=== PATIENT | female | born 1960 | race Caucasian/White ===

== ENCOUNTER 2020-11-11 11:32 | Outpatient (CLI) | payer OTHER, SELFPAY ==
[2020-11-11 19:51] LABS: Basophils Absolute Auto 0.1 K/mm3 (0.0-0.1); Eosinophils Absolute Auto 0.1 K/mm3 (0-0.3); Eosinophils Percent Auto 1.1 % (0-4.4); Hematocrit 46.7 % (37.0-47.0); Immature Granulocyte Absolute 0.03 K/mm3 (0.00-0.031); Immature Granulocyte Percent A 0.3 % (0-0.5); Lymphocytes Absolute Auto 2.89 K/mm3 (0.9-3.2); Lymphocytes Percent Auto 28.9 % (18.3-44.2); Mean Corpuscular HGB Conc 32.1 g/dl (32-36); Mean Corpuscular Hemoglobin 29.1 pg (26-34); Mean Corpuscular Volume 90.7 fl (80-100); Monocytes Absolute Auto 0.6 K/mm3 (0.1-0.6); Monocytes Percent Auto 5.7 % (2.6-8.5); Neutrophils Absolute Auto 6.3 K/mm3 (1.3-6.7); Platelet Count Result 258 k/mm3 (150-375); Red Blood Count 5.15 M/mm3 (4.2-5.4); Red Cell Distribution Width 12.1 % (11.5-14.5)
[2020-11-11 20:30] LABS: Alanine Aminotransferase 37 U/L (4-35); Albumin Level 4.1 g/dL (3.5-5.1); Alkaline Phosphatase 78 U/L (38-126); Anion Gap 7 mmol/L (8-16); Aspartate Amino Transferase 38 U/L (14-36); Bilirubin,Total 0.5 mg/dL (0.2-1.3); Blood Urea Nitrogen 11 mg/dL (7-17); Calcium 9.7 mg/dL (8.4-10.2); Carbon Dioxide 26 mmol/L (22-30); Chloride 101 mmol/L (98-107); Cholesterol 196 mg/dL (0-200); Estimated Glomerular Filt Rate > 60; Glucose 329 mg/dL (65-110); HDL Direct 53 mg/dL; Potassium 4.5 mmol/L (3.4-5.0); Sodium 134 mmol/L (137-145); Triglycerides 167 mg/dL (<150)
[2020-11-11 20:33] LABS: Hemoglobin A1C > 14.0 % (<5.7)
[2020-11-11 20:40] LABS: LDL Cholesterol Direct 115 mg/dL
[2020-11-11 21:27] LABS: MALB Creatinine Ratio 340.4 mg/g (0-30); Microalbumin Urine Random 255.3 mg/L (0-16.7)
== END 2020-11-11 11:33 | disposition home or self-care (01) ==
PROVIDERS: PCP Family Medicine; Visit Provider Family Medicine
DX: Z00.00 Encounter for general adult medical examination without abnormal findings (principal); E11.9 Type 2 diabetes mellitus without complications
CPT/HCPCS: 36415; 80053; 80061; 82043; 83036; 85025

== ENCOUNTER 2021-02-13 12:10 | Outpatient (CLI) | payer OTHER, SELFPAY ==
[2021-02-13 22:44] LABS: Hemoglobin A1C 9.3 % (<5.7)
== END 2021-02-13 12:11 | disposition home or self-care (01) ==
PROVIDERS: PCP Family Medicine; Visit Provider Family Medicine
DX: E11.9 Type 2 diabetes mellitus without complications (principal)
CPT/HCPCS: 36415; 83036

== ENCOUNTER 2021-05-14 18:00 | Outpatient (RCR) | payer OTHER, SELFPAY ==
[2021-02-25 09:40] VITALS: PULSE 67
[2021-03-19 12:06] LABS: Glucose Point of Care 130 mg/dl (65-105)
[2021-03-20 12:07] LABS: Glucose Point of Care 123 mg/dl (65-105)
[2021-04-10 19:11] LABS: Glucose Point of Care 129 mg/dl (65-105)
[2021-04-10 19:11] LABS: Glucose Point of Care 127 mg/dl (65-105)
== END 2021-05-21 10:08 | disposition home or self-care (01) ==
LOC: ANHCPREHAB 18:00
PROVIDERS: PCP Family Medicine
DX: Z95.5 Presence of coronary angioplasty implant and graft (principal); I50.89 Other heart failure
CPT/HCPCS: 93798

== ENCOUNTER 2021-05-20 11:21 | Outpatient (CLI) | payer OTHER, SELFPAY ==
[2021-05-20 20:57] LABS: Creatinine Urine 133.9 mg/dL
[2021-05-20 21:01] LABS: MALB Creatinine Ratio 69.2 mg/g (0-30); Microalbumin Urine Random 92.7 mg/L (0-16.7)
[2021-05-20 21:07] LABS: Hemoglobin A1C 7.9 % (<5.7)
== END 2021-05-20 11:22 | disposition home or self-care (01) ==
PROVIDERS: PCP Family Medicine; Visit Provider Family Medicine
DX: E11.9 Type 2 diabetes mellitus without complications (principal)
CPT/HCPCS: 36415; 82043; 83036

== ENCOUNTER 2021-08-21 10:34 | Outpatient (CLI) | payer OTHER, SELFPAY ==
[2021-08-21 19:24] LABS: Alanine Aminotransferase 31 U/L (6-35); Albumin Level 4.3 g/dL (3.5-5.1); Alkaline Phosphatase 52 U/L (38-126); Anion Gap 8 mmol/L (8-16); Aspartate Amino Transferase 42 U/L (14-36); Bilirubin,Total 0.4 mg/dL (0.2-1.3); Blood Urea Nitrogen 17 mg/dL (7-17); Calcium 9.5 mg/dL (8.4-10.2); Carbon Dioxide 26 mmol/L (22-30); Chloride 105 mmol/L (98-107); Cholesterol 106 mg/dL (0-200); Estimated Glomerular Filt Rate > 60; Glucose 159 mg/dL (65-110); HDL Direct 57 mg/dL; Potassium 4.8 mmol/L (3.4-5.0); Sodium 139 mmol/L (137-145); Triglycerides 121 mg/dL (<150)
[2021-08-21 19:51] LABS: Hemoglobin A1C 8.4 % (<5.7)
[2021-08-21 19:57] LABS: Creatinine Urine 134.4 mg/dL; LDL Cholesterol Direct < 30 mg/dL
[2021-08-21 20:01] LABS: MALB Creatinine Ratio 50.5 mg/g (0-30); Microalbumin Urine Random 67.9 mg/L (0-16.7)
== END 2021-08-21 10:35 | disposition home or self-care (01) ==
PROVIDERS: PCP Family Medicine; Visit Provider Family Medicine
DX: E11.9 Type 2 diabetes mellitus without complications (principal)
CPT/HCPCS: 36415; 80053; 80061; 82043; 83036

== ENCOUNTER 2021-11-24 07:33 | Outpatient (CLI) | payer OTHER, SELFPAY ==
[2021-11-24 18:44] LABS: Alanine Aminotransferase 27 U/L (6-35); Albumin Level 4.3 g/dL (3.5-5.1); Alkaline Phosphatase 48 U/L (38-126); Anion Gap 4 mmol/L (8-16); Aspartate Amino Transferase 30 U/L (14-36); Bilirubin,Total 0.2 mg/dL (0.2-1.3); Blood Urea Nitrogen 16 mg/dL (7-17); Calcium 9.1 mg/dL (8.4-10.2); Carbon Dioxide 27 mmol/L (22-30); Chloride 104 mmol/L (98-107); Cholesterol 122 mg/dL (0-200); Estimated Glomerular Filt Rate > 60; Glucose 139 mg/dL (65-110); HDL Direct 65 mg/dL; Potassium 4.3 mmol/L (3.4-5.0); Sodium 135 mmol/L (137-145); Triglycerides 117 mg/dL (<150)
[2021-11-24 19:49] LABS: Hepatitis B Surface Antigen Negative (Negative)
[2021-11-24 19:54] LABS: HAV RESULT Negative (Negative); Hepatitis B Core IgM Result Negative (Negative)
[2021-11-24 20:00] LABS: Hemoglobin A1C 6.9 % (<5.7)
[2021-11-24 20:06] LABS: Hepatitis C Virus Antibody Negative (Negative)
[2021-11-24 20:12] LABS: Creatinine Urine 137.6 mg/dL
[2021-11-24 20:17] LABS: MALB Creatinine Ratio 33.5 mg/g (0-30); Microalbumin Urine Random 46.1 mg/L (0-16.7)
[2021-11-24 20:42] LABS: LDL Cholesterol Direct < 30 mg/dL
== END 2021-11-24 07:34 | disposition home or self-care (01) ==
PROVIDERS: PCP Family Medicine; Visit Provider Family Medicine
DX: R74.01 Elevation of levels of liver transaminase levels (principal); E11.9 Type 2 diabetes mellitus without complications
CPT/HCPCS: 36415; 80053; 80061; 80074; 82043; 83036

== ENCOUNTER 2022-01-05 00:36 | Day surgery (SDC) | payer OTHER, SELFPAY ==
[2021-12-23 14:56] VITALS: BMI 31.4
[2022-01-05 09:19] VITALS: BP 136/67; PULSE 81; RESP 17; TEMP 36.6; O2SAT 99; BMI 31.1
[2022-01-05 09:31] LABS: Glucose Point of Care 104 mg/dl (65-105)
[2022-01-05] MEDS: LACTATED RINGERS 1,000 ML 150 ML IV CONT (09:31)
--- NOTE | 2022-01-05 09:40 | PM.HPGS ---
History of Present Illness History of Present Illness Consent: Risks, benefits, and alternatives have been discussed and questions answered. Patient agrees to proceed with procedure. Chief complaint: neoplasm screening Narrative: Bev Erazo is a 62 year old female Presents for screening colonoscopy. Patient reports having had colon polyps on [address] Maximiliano Payne. These were performed in [place]. Most recent colonoscopy 7 years ago. Patient reports her current weight appetite and bowel movements are normal. Patient denies any bleeding. Her family history is noncontributory. Patient has recent past medical history is significant for atherosclerotic heart disease. She has a history of heart stents. A history of an MD. She is being treated for diabetes. Review of Systems Review of Systems: Review of systems noncontributory. [facility] Family History Family History Father Diabetes mellitus Hypertension Family history of cardiovascular disease Grandparent Diabetes mellitus Family history of malignant neoplasm of brain Hypertension Cerebrovascular accident Family history of cardiovascular disease Endometrial cancer Mother Family history of lung cancer Family history of malignant neoplasm of uterus Family history of malignant neoplasm of brain Social History Social History Smoking packs per day: 1 Smoking cigarettes per day: 20.0 Years smoked: 35 Smoking pack-years: 35.00 Smoking status: Former smoker Tobacco type: cigarettes Second hand tobacco smoke exposure: Yes Smoking end date: 03/29/12 Alcohol intake: current Drinks per week: 2 Alcohol use details: 4 drinks a year Substance use: never Substance use type: does not use Living arrangements: alone Spiritual care concerns: No Meds Home Medications and Allergies Home Medications Medication Instructions Recorded Confirmed Type lancets (Accu-Chek Softclix #100 ea 11/15/20 01/05/22 Rx Lancets) aspirin 81 mg tablet,delayed 81 mg PO DAILY 02/13/21 01/05/22 History release (Adult Low Dose Aspirin) cetirizine 10 mg capsule (Allergy 10 mg PO DAILY #30 caps 02/13/21 01/05/22 Rx Relief (cetirizine)) cholecalciferol (vitamin D3) 125 125 mcg PO DAILY 02/13/21 01/05/22 History mcg (5,000 unit) capsule metoprolol tartrate 25 mg tablet 25 mg PO BID 02/13/21 01/05/22 History rosuvastatin 20 mg tablet 20 mg PO DAILY 02/13/21 01/05/22 History ticagrelor 90 mg tablet 90 mg PO Q12H 02/13/21 01/05/22 History blood-glucose meter (Accu-Chek #1 ea 02/28/21 01/05/22 Rx Guide Me Glucose Meter) blood sugar diagnostic (Accu-Chek #100 ea 04/09/21 01/05/22 Rx Guide test strips) fluticasone propionate 50 2 spray intranasal DAILY #16 grams 04/13/21 01/05/22 Rx mcg/actuation nasal spray,suspension (Flonase Allergy Relief) pen needle, diabetic 31 gauge x #100 ea 05/09/21 01/05/22 Rx 3/16 (BD Ultra-Fine Mini Pen Needle) lisinopril 2.5 mg tablet 2.5 mg PO DAILY #90 tabs 05/28/21 01/05/22 Rx albuterol sulfate 90 mcg/actuation 1 inh inhalation Q4H PRN shortness 06/25/21 01/05/22 Rx aerosol inhaler of breath or wheezing #8.5 grams metformin 500 mg tablet,extended 1,000 mg PO BID #360 tabs 11/05/21 01/05/22 Rx release 24hr sertraline 25 mg tablet (Zoloft) 25 mg PO DAILY #90 tabs 11/18/21 01/05/22 Rx brimonidine 0.025 % eye drops 1 drp RIGHT EYE QID PRN eye 11/26/21 01/05/22 Rx (Lumify) irritation #2.5 mL empagliflozin 25 mg tablet 25 mg PO QAM #90 tabs 11/26/21 01/05/22 Rx (Jardiance) olopatadine 0.2 % eye drops 1 drp LEFT EYE DAILY PRN itching 11/26/21 01/05/22 Rx (Pataday Once Daily Relief) #2.5 mL tirzepatide 5 mg/0.5 mL 5 mg (0.5 mL) subcut WEEKLY #2 mL 12/25/21 01/05/22 Rx subcutaneous pen injector (Devonteunrima) Allergies Allergy/AdvReac Type Severity
--- NOTE | 2022-01-05 09:49 | WPDANESEPPF ---
Anes - Initial Pre Proc Eval Procedure: Operation Date: 01/05/22 10:30 Proposed Procedures p Screening Colonoscopy - Maximiliano Mathews MD Date/Time: 01/05/22 09:49 Surgeon: Maximiliano Mathews MD Pre Op Diagnosis: neoplasm screening Patient Data Age: 62 Gender: F Height: 1.7 m Weight: 90.1 kg Last Vital Signs Temp 97.8 F 01/05/22 09:19 Pulse 81 01/05/22 09:19 Resp 17 01/05/22 09:19 BP 136/67 01/05/22 09:19 Pulse Ox 99 01/05/22 09:19 O2 Del Method Room Air 01/05/22 09:19 Allergies Allergy/AdvReac Type Severity Reaction Status Date / Time No Known Allergies Allergy Verified 01/05/22 09:17 Home Medications Medication Instructions Recorded Confirmed Type lancets (Accu-Chek Softclix #100 ea 11/15/20 01/05/22 Rx Lancets) aspirin 81 mg tablet,delayed 81 mg PO DAILY 02/13/21 01/05/22 History release (Adult Low Dose Aspirin) cetirizine 10 mg capsule (Allergy 10 mg PO DAILY #30 caps 02/13/21 01/05/22 Rx Relief (cetirizine)) cholecalciferol (vitamin D3) 125 125 mcg PO DAILY 02/13/21 01/05/22 History mcg (5,000 unit) capsule metoprolol tartrate 25 mg tablet 25 mg PO BID 02/13/21 01/05/22 History rosuvastatin 20 mg tablet 20 mg PO DAILY 02/13/21 01/05/22 History ticagrelor 90 mg tablet 90 mg PO Q12H 02/13/21 01/05/22 History blood-glucose meter (Accu-Chek #1 ea 02/28/21 01/05/22 Rx Guide Me Glucose Meter) blood sugar diagnostic (Accu-Chek #100 ea 04/09/21 01/05/22 Rx Guide test strips) fluticasone propionate 50 2 spray intranasal DAILY #16 grams 04/13/21 01/05/22 Rx mcg/actuation nasal spray,suspension (Flonase Allergy Relief) pen needle, diabetic 31 gauge x #100 ea 05/09/21 01/05/22 Rx 3/16 (BD Ultra-Fine Mini Pen Needle) lisinopril 2.5 mg tablet 2.5 mg PO DAILY #90 tabs 05/28/21 01/05/22 Rx albuterol sulfate 90 mcg/actuation 1 inh inhalation Q4H PRN shortness 06/25/21 01/05/22 Rx aerosol inhaler of breath or wheezing #8.5 grams metformin 500 mg tablet,extended 1,000 mg PO BID #360 tabs 11/05/21 01/05/22 Rx release 24hr sertraline 25 mg tablet (Zoloft) 25 mg PO DAILY #90 tabs 11/18/21 01/05/22 Rx brimonidine 0.025 % eye drops 1 drp RIGHT EYE QID PRN eye 11/26/21 01/05/22 Rx (Lumify) irritation #2.5 mL empagliflozin 25 mg tablet 25 mg PO QAM #90 tabs 11/26/21 01/05/22 Rx (Jardiance) olopatadine 0.2 % eye drops 1 drp LEFT EYE DAILY PRN itching 11/26/21 01/05/22 Rx (Pataday Once Daily Relief) #2.5 mL tirzepatide 5 mg/0.5 mL 5 mg (0.5 mL) subcut WEEKLY #2 mL 12/25/21 01/05/22 Rx subcutaneous pen injector (Mounjaro) Laboratory Tests 01/05/22 09:25 POC Capillary Glucose 104 mg/dl mg/dl (65-105) Patient hx anesthesia problems: none Family hx anesthesia problems: none Results Review: All pre-operative results and documents have been reviewed as part of the pre-operative evaluation. [facility] Family History Family History Father Diabetes mellitus Hypertension Family history of cardiovascular disease Grandparent Diabetes mellitus Family history of malignant neoplasm of brain Hypertension Cerebrovascular accident Family history of cardiovascular disease Endometrial cancer Mother Family history of lung cancer Family history of malignant neoplasm of uterus Family history of malignant neoplasm of brain Social History Social History Smoking packs per day: 1 Smoking cigarettes per day: 20.0 Years smoked: 35 Smoking pack-years: 35.00 Smoking status: Former smoker Tobacco type: cigarettes Second hand tobacco smoke exposure: Yes Smoking end date: 03/29/12 Alcohol intake: current Drinks per week: 2 Alcohol use details: 4 drinks a year Substance use: never Substance use type: does not use Living arrangements: alone Spiritual care concerns: No Anes - Eval Final
[2022-01-05 10:09] VITALS: BP 100/59; PULSE 69; RESP 20; O2SAT 98
[2022-01-05 10:19] VITALS: BP 127/74; PULSE 74; RESP 20; O2SAT 99
[2022-01-05 10:34] VITALS: BP 114/76; PULSE 76; RESP 18; O2SAT 99
== END 2022-01-05 10:35 | disposition home or self-care (01) ==
PROVIDERS: PCP Family Medicine; Visit Provider Internal Medicine Gastroenterology
PROC: 0DJD8ZZ Inspection of Lower Intestinal Tract, Via Natural or Artificial Opening Endoscopic (ICD-10-PCS; CPT 45378; principal; 2022-01-05 10:30)
DX: Z12.11 Encounter for screening for malignant neoplasm of colon (principal); Z86.010 Personal history of colon polyps; K64.8 Other hemorrhoids; K57.30 Diverticulosis of large intestine without perforation or abscess without bleeding; Z79.82 Long term (current) use of aspirin; Z79.84 Long term (current) use of oral hypoglycemic drugs; Z79.51 Long term (current) use of inhaled steroids; Z87.891 Personal history of nicotine dependence; E66.9 Obesity, unspecified; Z68.32 Body mass index [BMI] 32.0-32.9, adult; I25.10 Atherosclerotic heart disease of native coronary artery without angina pectoris; Z95.5 Presence of coronary angioplasty implant and graft
CPT/HCPCS: 45378; 82948; J2704; J7120

== ENCOUNTER 2022-02-25 08:10 | Outpatient (CLI) | payer OTHER, SELFPAY ==
[2022-02-25 18:39] LABS: Basophils Absolute Auto 0.1 K/mm3 (0.0-0.1); Basophils Percent Auto 0.6 % (0.2-1.2); Eosinophils Absolute Auto 0.1 K/mm3 (0-0.3); Eosinophils Percent Auto 0.8 % (0-4.4); Hematocrit 40.9 % (37.0-47.0); Hemoglobin 13.5 g/dL (12.0-15.0); Immature Granulocyte Absolute 0.04 K/mm3 (0.00-0.031); Immature Granulocyte Percent A 0.3 % (0-0.5); Lymphocytes Absolute Auto 2.26 K/mm3 (0.9-3.2); Lymphocytes Percent Auto 19.4 % (18.3-44.2); Mean Corpuscular Hemoglobin 29.1 pg (26-34); Mean Corpuscular Volume 88.1 fl (80-100); Mean Platelet Volume 10.3 fl (7.4-10.4); Monocytes Absolute Auto 1.3 K/mm3 (0.1-0.6); Monocytes Percent Auto 11.2 % (2.6-8.5); Neutrophils Absolute Auto 7.9 K/mm3 (1.3-6.7); Neutrophils Percent Auto 67.7 % (45.5-73.1); Platelet Count Result 292 k/mm3 (150-375); Red Blood Count 4.64 M/mm3 (4.2-5.4); White Blood Count 11.7 K/mm3 (4.5-10.0)
[2022-02-25 18:55] LABS: Hemoglobin A1C 5.9 % (<5.7)
== END 2022-02-25 08:11 | disposition home or self-care (01) ==
LOC: ANHBWCLAB 08:11
PROVIDERS: PCP Family Medicine; Visit Provider Family Medicine
DX: E11.9 Type 2 diabetes mellitus without complications (principal); I21.9 Acute myocardial infarction, unspecified
CPT/HCPCS: 36415; 83036; 85025

== ENCOUNTER 2022-03-02 11:24 | Outpatient (CLI) | payer OTHER, SELFPAY ==
[2022-03-02 18:59] LABS: Appearance Urine Slightly Cloudy (Clear); Bilirubin Urine Negative (Negative); Blood Urine Negative (Negative); Color Urine Yellow (Yellow); Glucose Urine UA 3+ mg/dL (Negative); Ketones Urine Negative (Negative); Leukocyte Esterase Ur Negative LEU/UL (NEGATIVE); Nitrate Urine Negative (Negative); Protein Urine 2+ mg/dL (Negative); Specific Grav Ur 1.015 (1.001-1.035)
[2022-03-02 19:05] LABS: Mucus Urine Rare /lpf; Squamous Epithelial Cell Urine Rare /hpf (Few); WBC Urine >75 /hpf (0-3)
[2022-03-02 19:14] LABS: Add Urine Microscopic? YES
== END 2022-03-02 11:25 | disposition home or self-care (01) ==
LOC: ANHBWCLAB 11:25
PROVIDERS: PCP Family Medicine; Visit Provider Family Medicine
DX: R35.0 Frequency of micturition (principal)
CPT/HCPCS: 81001; 87077; 87086; 87186

== ENCOUNTER → 2022-03-18 09:30 | Outpatient (CLI) | payer OTHER, SELFPAY ==
--- NOTE | ~2022-03-18 | CT_ITS ---
EXAMINATION: CT lung screening DATE: 03/18/2022 09:45 INDICATION: Personal history of nicotine dependence, prior smoker with 30 pack year history TECHNIQUE: Computed tomography (CT) of the chest was performed without intravenous contrast. The dose -length product (DLP) was 114.38 mGy-cm. 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 COMPARISON: None FINDINGS: There is mild emphysema. No suspicious pulmonary nodules are identified. The lungs are free of acute opacities. No pleural effusion or pneumothorax. No pathologically enlarged thoracic lymph n odes are identified. The heart size is normal. Calcified coronary artery atherosclerosis is noted. Th ere is a 2.5 cm low-density mass of the left adrenal gland, consistent with an adenoma. There is mode rate thoracic spondylosis. IMPRESSION: 1. Lung-RADS category 1: Negative. Continue annual screening with noncontrast low-dose chest CT in 12 months. Reviewed, dictated and finalized at location F. TRIMMER IMPRESSION: 1. Lung-RADS category 1: Negative. Continue annual screening with noncontrast l ow-dose chest CT in 12 months.
== END ==
PROVIDERS: PCP Family Medicine; Visit Provider Family Medicine
DX: Z12.2 Encounter for screening for malignant neoplasm of respiratory organs (principal); Z87.891 Personal history of nicotine dependence
CPT/HCPCS: 71271

== ENCOUNTER → 2022-05-27 10:22 | Outpatient (CLI) | payer OTHER, SELFPAY ==
--- NOTE | ~2022-05-27 | MM_ITS ---
EXAMINATION: MM screening sharla BI w ermelinda HISTORY: Screening mammogram TECHNIQUE: Craniocaudal and mediolateral oblique 3-D tomosynthesis images were obtained and synthetic 2-D images were generated. CAD analysis was submitted and interpreted. COMPARISON: None BREAST PARENCHYMAL COMPOSITION: There are scattered areas of fibroglandular density. FINDINGS: There is no evidence of suspicious mass, calcification, or architectural distortion to sugg est malignancy in either breast. There has been no suspicious interval change. IMPRESSION: 1. No mammographic evidence of malignancy. 2. Recommend routine screening mammography in one year. BI-RADS Category 1: Negative Reviewed, dictated and finalized at location A. 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
== END ==
PROVIDERS: PCP Family Medicine; Visit Provider Family Medicine
DX: Z12.31 Encounter for screening mammogram for malignant neoplasm of breast (principal)
CPT/HCPCS: 77063; 77067

== ENCOUNTER 2022-09-14 09:31 | Outpatient (CLI) | payer OTHER, SELFPAY ==
[2022-09-14 18:44] LABS: Basophils Absolute Auto 0.1 K/mm3 (0.0-0.1); Basophils Percent Auto 0.8 % (0.2-1.2); Eosinophils Absolute Auto 0.1 K/mm3 (0-0.3); Eosinophils Percent Auto 1.4 % (0-4.4); Hematocrit 40.2 % (37.0-47.0); Hemoglobin 12.8 g/dL (12.0-15.0); Immature Granulocyte Absolute 0.01 K/mm3 (0.00-0.031); Immature Granulocyte Percent A 0.1 % (0-0.5); Lymphocytes Absolute Auto 3.02 K/mm3 (0.9-3.2); Lymphocytes Percent Auto 34.9 % (18.3-44.2); Mean Corpuscular HGB Conc 31.8 g/dl (32-36); Mean Corpuscular Hemoglobin 29.5 pg (26-34); Mean Corpuscular Volume 92.6 fl (80-100); Monocytes Absolute Auto 0.6 K/mm3 (0.1-0.6); Monocytes Percent Auto 6.7 % (2.6-8.5); Neutrophils Absolute Auto 4.9 K/mm3 (1.3-6.7); Neutrophils Percent Auto 56.1 % (45.5-73.1); Platelet Count Result 205 k/mm3 (150-375); Red Blood Count 4.34 M/mm3 (4.2-5.4); Red Cell Distribution Width 13.1 % (11.5-14.5); White Blood Count 8.7 K/mm3 (4.5-10.0)
[2022-09-14 19:13] LABS: Alanine Aminotransferase 28 U/L (6-35); Albumin Level 4.1 g/dL (3.5-5.1); Alkaline Phosphatase 41 U/L (38-126); Anion Gap 3 mmol/L (8-16); Aspartate Amino Transferase 82 U/L (14-36); Bilirubin,Total 0.5 mg/dL (0.2-1.3); Blood Urea Nitrogen 16 mg/dL (7-17); Calcium 8.9 mg/dL (8.4-10.2); Carbon Dioxide 29 mmol/L (22-30); Chloride 106 mmol/L (98-107); Cholesterol 102 mg/dL (0-200); Estimated Glomerular Filt Rate > 60; Glucose 84 mg/dL (65-110); HDL Direct 60 mg/dL; Potassium 3.7 mmol/L (3.4-5.0); Sodium 138 mmol/L (137-145); Triglycerides 70 mg/dL (<150)
[2022-09-14 19:17] LABS: Microalbumin Urine Random 26.4 mg/L (0-16.7)
[2022-09-14 19:18] LABS: Creatinine Urine 109.4 mg/dL; MALB Creatinine Ratio 24.1 mg/g (0-30)
[2022-09-14 19:31] LABS: LDL Cholesterol Direct < 30 mg/dL
== END 2022-09-14 09:32 | disposition home or self-care (01) ==
LOC: ANHBWCLAB 09:31
PROVIDERS: PCP Family Medicine; Visit Provider Nurse Practitioner
DX: E11.9 Type 2 diabetes mellitus without complications (principal); R74.01 Elevation of levels of liver transaminase levels; K21.9 Gastro-esophageal reflux disease without esophagitis
CPT/HCPCS: 36415; 80053; 80061; 82043; 83036; 85025

== ENCOUNTER 2023-03-08 08:31 | Outpatient (CLI) | payer MEDICARE, SELFPAY ==
[2023-03-08 19:32] LABS: Anion Gap 3 mmol/L (8-16); Blood Urea Nitrogen 16 mg/dL (7-17); Calcium 9.7 mg/dL (8.4-10.2); Carbon Dioxide 31 mmol/L (22-30); Chloride 105 mmol/L (98-107); Cholesterol 159 mg/dL (0-200); Estimated Glomerular Filt Rate > 60; Glucose 85 mg/dL (65-110); HDL Direct 84 mg/dL; Potassium 4.3 mmol/L (3.4-5.0); Sodium 139 mmol/L (137-145); Triglycerides 91 mg/dL (<150)
[2023-03-08 19:42] LABS: LDL Cholesterol Direct 55 mg/dL
[2023-03-08 20:10] LABS: Creatinine Urine 48.1 mg/dL
[2023-03-08 20:13] LABS: MALB Creatinine Ratio 20.2 mg/g (0-30); Microalbumin Urine Random 9.7 mg/L (0-16.7)
[2023-03-08 21:18] LABS: Hemoglobin A1C 5.2 % (<5.7)
== END 2023-03-08 08:32 | disposition home or self-care (01) ==
PROVIDERS: PCP Nurse Practitioner Adult Health; Visit Provider Nurse Practitioner Adult Health
DX: E11.9 Type 2 diabetes mellitus without complications (principal)
CPT/HCPCS: 36415; 80048; 80061; 82043; 83036

== ENCOUNTER 2023-07-12 08:33 | Outpatient (CLI) | payer MEDICARE, SELFPAY ==
[2023-07-12 20:58] LABS: Creatinine Urine 125.3 mg/dL
[2023-07-12 21:08] LABS: Alanine Aminotransferase 26 U/L (6-35); Albumin Level 4.3 g/dL (3.5-5.1); Alkaline Phosphatase 55 U/L (38-126); Anion Gap 5 mmol/L (4-12); Aspartate Amino Transferase 65 U/L (14-36); Bilirubin,Total 0.6 mg/dL (0.2-1.3); Blood Urea Nitrogen 24 mg/dL (7-17); Calcium 9.6 mg/dL (8.4-10.2); Carbon Dioxide 28 mmol/L (22-30); Chloride 108 mmol/L (98-107); Cholesterol 149 mg/dL (0-200); Estimated Glomerular Filt Rate > 60; Glucose 101 mg/dL (65-110); HDL Direct 82 mg/dL; Potassium 4.1 mmol/L (3.4-5.0); Sodium 141 mmol/L (137-145); Triglycerides 62 mg/dL (<150)
[2023-07-12 21:10] LABS: MALB Creatinine Ratio 15.6 mg/g (0-30); Microalbumin Urine Random 19.6 mg/L (0-16.7)
[2023-07-12 21:19] LABS: LDL Cholesterol Direct 56 mg/dL
[2023-07-12 22:57] LABS: Hemoglobin A1C 4.8 % (<5.7)
== END 2023-07-12 08:34 | disposition home or self-care (01) ==
PROVIDERS: PCP Nurse Practitioner Adult Health; Visit Provider Nurse Practitioner Adult Health
DX: E11.9 Type 2 diabetes mellitus without complications (principal)
CPT/HCPCS: 36415; 80053; 80061; 82043; 83036

== ENCOUNTER 2024-01-24 10:21 | Outpatient (CLI) | payer MEDICARE, SELFPAY ==
[2024-01-24 18:36] LABS: Alanine Aminotransferase 19 U/L (6-35); Albumin Level 4.1 g/dL (3.5-5.1); Alkaline Phosphatase 67 U/L (38-126); Anion Gap 6 mmol/L (4-12); Aspartate Amino Transferase 45 U/L (14-36); Bilirubin,Total 0.6 mg/dL (0.2-1.3); Blood Urea Nitrogen 15 mg/dL (7-17); Calcium 9.3 mg/dL (8.4-10.2); Carbon Dioxide 31 mmol/L (22-30); Chloride 104 mmol/L (98-107); Cholesterol 187 mg/dL (0-200); Estimated Glomerular Filt Rate > 60; Glucose 88 mg/dL (65-110); HDL Direct 71 mg/dL; Potassium 4.4 mmol/L (3.4-5.0); Sodium 141 mmol/L (137-145); Triglycerides 107 mg/dL (<150)
[2024-01-24 18:47] LABS: LDL Cholesterol Direct 80 mg/dL
[2024-01-24 19:44] LABS: Creatinine Urine 78.3 mg/dL
[2024-01-24 19:48] LABS: MALB Creatinine Ratio 8.2 mg/g (0-30); Microalbumin Urine Random 6.4 mg/L (0-16.7)
[2024-01-24 20:12] LABS: Hemoglobin A1C 5.2 % (<5.7)
== END 2024-01-24 10:22 | disposition home or self-care (01) ==
PROVIDERS: PCP Nurse Practitioner Adult Health; Visit Provider Nurse Practitioner Adult Health
DX: E11.9 Type 2 diabetes mellitus without complications (principal)
CPT/HCPCS: 36415; 80053; 80061; 82043; 82565; 83036

== ENCOUNTER 2024-07-24 09:51 | Outpatient (CLI) | payer MEDICARE, SELFPAY ==
--- OUTSIDE RECORDS SUMMARY | 2024-07-24 10:58 | XMS_ITS | Clinical Summary ---
Author Organization [facility] Address [address] [place] [address] Care Team Providers Care Veterinary Laboratory Diagnostician Name Role Phone Phil Rodriguez MD Unavailable [phone] Phani Jimenez MD Primary Care Provider [phone] Allergies Active Allergy Reactions Criticality Noted Date Comments Adhesive Tape-Silicones Rash Reaction: rash, Medications blood glucose diagnostic (ONETOUCH ULTRA TEST) strip check blood sugar bid 300 strip 3 2 Active metFORMIN XR (GLUCOPHAGE XR) 500 mg 24 hr tablet Take 2 tablets (1,000 mg total) by mouth daily with lunch. 180 tablet 3 7 Active Additional Information Patient taking differently: 500 mgoral2 times daily, Reported on 07/28/2023 aspirin 81 mg enteric coated tablet Take 1 tablet (81 mg total) by mouth daily 30 tablet 11 1 Active fluticasone propionate (FLONASE) 50 mcg/actuation nasal spray 2 sprays daily 2 Active albuterol HFA (PROVENTIL HFA,VENTOLIN HFA,PROAIR HFA) 90 mcg/actuation inhaler INHALE ONE PUFF BY MOUTH EVERY 4 HOURS NEEDED FOR SHORTNESS OF BREATH OR WHEEZING 2 Active lisinopriL (PRINIVIL,ZESTR IL) 2.5 mg tablet Take 1 tablet (2.5 mg total) by mouth daily 90 tablet 3 3 Active Additional Information Patient not taking.Reported on 07/28/2023 Jardiance 25 mg tablet Take 1 tablet (25 mg total) by mouth every morning 3 Active Mounjaro 12.5 mg/0.5 mL pen injector 10 mg 3 Active metoprolol tartrate (LOPRESSOR) 50 mg immediate release tablet TAKE 1 TABLET(50 MG) BY MOUTH TWICE DAILY 180 tablet 3 3 Active sertraline (ZOLOFT) 25 mg tablet 4 Active rosuvastatin (CRESTOR) 20 mg tablet Take 1 tablet (20 mg total) by mouth daily 90 tablet 3 4 Active Active Problems Problem Noted Date Diagnosed Date Obesity (BMI 30-39.9) 12/05/2020 Assessment & Plan (12/05/2020 2:33 AM CDT): Patient has lost about 5 lb this past year. Acute coronary syndrome 12/04/2020 Assessment & Plan (12/05/2020 2:34 AM CDT): NSTEMI. Troponins elevated. Patient started on full-dose Lovenox and nitropaste. Patient also started on metoprolol. NPO for Cardiology evaluation. Hydrating with IV fluids as patient also received contrast for CT of the chest. COVID screen is negative. Echo also ordered. Epiretinal membrane 05/29/2016 Overview (08/21/2016): Macular retinal puckering Eczema 05/29/2016 Overview (08/21/2016): Eczema Leukocytosis 10/08/2014 Overview (07/02/2016): Leukocytosis Vulvar intraepithelial neoplasia (YUNG) grade 3 0 07/06/2014 Overview (07/02/2016): YUNG III - Vulval intraepithelial neoplasia grade III Osteopenia 04/03/2014 Overview (07/02/2016): Osteopenia Hypertension 08/12/2013 Overview (07/01/2016): HTN (hypertension) Assessment & Plan (12/05/2020 2:32 AM CDT): Currently normotensive. Patient is on lisinopril which will hold for now to decrease nephrotoxins exposure as patient is received contrast for CT scan and will likely receive contrast for left heart catheterization. Patient was started on metoprolol with hold parameters. Continue to monitor. Snowden's esophagus 08/12/2013 Overview (07/02/2016): Snowden's esophagus Depression 08/12/2013 Overview (07/02/2016): Depression Type 2 diabetes mellitus 08/12/2013 Overview (07/02/2016): DM type 2 (diabetes mellitus, type 2) Assessment & Plan (12/05/2020 2:33 AM CDT): Patient on Soliqua 10 units daily, will resume at 8 units. Mid dose sliding scale. Continue to monitor. 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 OTHER SURGICAL HISTORY Elevated White Blood Cell: saw Dr. 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 Hx Other Medical Elevated White Blood Cell Hx Other Medical basal cell canc er lip; Comments: AA 06/08/2015 -; Laterality: right Smoking Family History Medical History Relation Name Comments Diabetes Father Diabetes mellit us; Heart disease Father Heart disease; Hypertension Father Hypertension; d eceased Brain cancer Mother Cancer -brain; Cause of : Cancer -brain Lung cancer Mother Cancer -lung; d eceased Other Mother Cancer -endomet rial; Other Sister 2 Alive and well; Relation Name Status Comments Father Alive Mother Alive Sister 1 Alive Sister 2 Social History Tobacco Use Types Packs/Day Years Used Date Smoking Tobacco: Former Smokeless Tobacco: Never Tobacco Cessation:Counseling Given: Not Answered Alcohol Use Standard Drinks/Week Comments Yes 0 (1 standard drink = 0.6 oz pur e alcohol) AUDIT-C Answer Date Recorded Q1: How often do you have a drink containing alc ohol? Never 12/04/2020 Average Number of Drinks Not on file 021 Q3: How often do you have si x or more drinks on one occasion? Never 12/04/2020 Comments No Sex and Gender Information Value Date Recorded Sex Assigned at Not on file Legal Sex Female 1:37 AM CASE FINISHER Gender Identity Female 12/27/2020 8:58 AM CDT Sexual Orientation Straight 12/27/2020 8: 58 AM CDT Obstetrics History Para Term AB IAB SAB Ectopic Multiple Livin g Live Births 0 0 0 0 0 0 0 0 0 0 0 Last Filed Vital Signs Vital Sign Reading Time Taken Comments Blood Pressure 127/81 07/28/2023 8:31 AM CDT Pulse 68 07/28/2023 8:31 AM CDT Temperature 36.8 C (98.2 F) 01/01/2021 8:57 AM CDT Respiratory Rate 18 07/28/2023 8:31 AM CDT Oxygen Saturation 97% 12/06/2020 11:29 AM CDT Inhaled Oxygen Concentration - - Weight 120.2 kg (265 lb) 08/30/2023 7:19 AM CDT Height 167.6 cm (5' 6 ) 08/30/2023 7:19 AM CDT Body Mass Index 42.77 08/30/2023 7:19 AM CDT Plan of Treatment Health Maintenance Due Date Last Done Comments Albumin Creatinine Ratio, Urine 1960 Hepatitis B Screening 01/06/1976 Pneumococcal vaccine 65+ (1 of 2 - PCV) 1977 Zoster Vaccine (1 of 2) 01/06/2008 Dilated Eye Exam 04/16/2017 04/16/2016 Hemoglobin A1C 05/23/2017 11/20/2016 Foot Exam 07/20/2017 07/20/2016 Osteoporosis Screening-Bone Density Scan 10/01/2017 10/02/2015 Depression Screening 12/29/2017 12/29/2016, 12/04/2016, 09/08/2016 Colon Cancer Screening-Colonoscopy 11/27/2019 11/26/2014 DTaP/Tdap/Td Vaccine (2 - Td or Tdap) 06/19/2020 06/19/2010 Breast Cancer Screening-Mammogram 01/31/2021 02/01/2020, 08/11/2016, 06/26/2015, Additional history exists Fall Risk Assessment 12/06/2021 12/06/2020 eGFR 12/06/2021 12/06/2020, 09/0 11/2020, 12/04/2020, Additional history exists Lipid Panel 01/27/2022 01/27/2021, 090 10/2020, 11/20/2016, Additional history exists Well Visit 65+ 2023 Influenza Vaccine (#1) 2023 8, 01/03/2015, 12/21/2013 Colon Cancer Screening-CT Colonography Discontinued 11/26/2014 Colon Cancer Screening-DNA Stool Discontinued 11/27/19 15 Colon Cancer Screening-FIT Discontinued 11/26/2014 Colon Cancer Screening-Sigmoidoscopy Discontinued 11/26/2014 Hepatitis C Screening Completed 11/20/2016, 017 Medical Devices Implanted Type Area Geriatric Nurse Practitioner Device Identifier Shelf Expiration Date Model / Serial / Lot [employer] [id number] System Coronary Stent Xience Karol Everolimus L18 Mm Od3.25 Mm Rapid Exchange - [id number] Implanted:Qty: 1 on 12/05/2020 by Phil Rodriguez MD at [facility] Other - see comments [employer] 12/30/2021 [id number] / / [id number] Daig Edie[employer] [id number] Angio-Seal Evolution 6fr .035in Guidewire Bypass Tube Suture - [id number] Implanted:Qty: 1 on 12/05/2020 by Phil Rodriguez MD at [facility] Other - see comments [employer] Edie 06/26/2021 [id number] / / [id number] Procedures Procedure Name Priority Date/Time Associated Diagnosis Comments LIPID PANEL Routine 01/27/2021 9:37 AM CDT EGFR Routine 12/06/2020 4:01 AM CDT DIAGNOSTIC MAMMOGRAM BILATERAL W LADARIUS Schedule Routine, Read Routine (OP Routine) 02/01/2020 10:58 AM CASE FINISHER Unspecified lump in the right breast, upper outer quadrant HEPATITIS C AB REFLEX RNA QUANT PCR Routine 11/20/2016 10:03 AM CDT HEMOGLOBIN A1C Routine 11/20/2016 10:03 AM CDT Type 2 diabetes mellitus without complication, unspecified half-way insulin use status DIABETES FOOT EXAM Routine 07/20/2016 DIABETES EYE EXAM Routine 04/16/2016 DEXA SCAN Routine 10/02/2015 COLONOSCOPY Routine 11/26/2014 from Last 3 Months or Most Recently Relevant to Health Maintenance Results * (ABNORMAL) Lipid panel (01/27/2021 9:37 AM CDT) Cholesterol 75 <200 mg/dL [facility] HDL 40(L) > OR = 50 mg/dL [facility] Triglycerides 118 <150 mg/dL [facility] LDL 15 mg/dL (calc) [facility] Comment: Reference range: <100 Desirable range <100 mg/dL for primary prevention; <70 mg/dL for patients with CHD or diabetic patients with > or = 2 CHD risk factors. LDL-C is now calculated using the Barrie calculation, which is a validated novel method providing better accuracy than the Friedewald equation in the estimation of LDL-C. Jarett SS et al. IRIS. 2013;310(19): 3605-8876 (http://education.COH/faq/SQM157) Chol/HDL ratio 1.9 <5.0 (calc) [facility] Non-HDL, (LDL+VLDL) 35 <130 mg/dL (calc) [facility] Comment: For patients with diabetes plus 1 major ASCVD risk factor, treating to a non-HDL-C goal of <100 mg/dL (LDL-C of <70 mg/dL) is considered a therapeutic option. 01/27/2021 9:37 AM CDT 01/27/2021 9:38 AM CDT us Serenity Roblero PROVIDER CONTRACTING CONSULTANT LAB BLOOD ORDERABLES Final Result [facility] [address] [address] * eGFR (12/06/2020 4:01 AM CDT) eGFR 102 mL/min/1.7 3 m2 [facility] MCCARTY (MICHEAL) Comment: Interpretive Data Reference Interval Normal >/= 90 mL/min/1.73m2 Mildly decreased* 60 - 89 mL/min/1.73m2 Mildly to moderately decreased 45 - 59 mL/min/1.73m2 Moderately to severely decreased 30 - 44 mL/min/1.73m2 Severely decreased 15 - 29 mL/min/1.73m2 Kidney Failure < 15 mL/min/1.73m2 *Relative to young adult level Estimated glomerular filtration rate is determined by the CKD-EPI equation recommended by the National Kidney Foundation (KDIGO 2012 Clinical Practice Guideline for the Evaluation and Management of Chronic Kidney Disease. Kidney Intnl Suppl Mar 2012;3:1). The CKD-EPI equation should not be used for patients with unstable renal function and has not been validated in children and those over 70. Current interpretive data was last reviewed 2020 Blood 12/06/2020 4:01 AM CDT 12/06/2020 4:12 AM CDT us Sheila Rosado MD LAB BLOOD ORDERABLES Final Res ult Performing Organization Address City/State/[facility] Co de Phone Number [facility] Department of Laboratories [place], [place] [id number] * Diagnostic Mammogram Bilateral W Ladarius (02/01/2020 10:58 AM CASE FINISHER) Anatomical Region Laterality Modality Breast Bilateral Mammography 02/01/2020 11:2 2 AM CASE FINISHER Impressions 02/01/2020 11:52 AM CASE FINISHER 1. No mammographic or sonographic abnormality at the palpable site of concern in the right breast at the 11 o'clock position. Any further evaluation of this palpable abnormality should be based on clinical grounds. 2. No mammographic evidence of malignancy. A 1 year screening mammogram is recommended. BI-RADS: 1 - Negative. I discussed the findings and impression with the patient at time of the examination. Electronically signed by: Igor Cedeño M.D. Narrative 02/01/2020 11:52 AM CASE FINISHER EXAMINATION: DIAGNOSTIC MAMMOGRAM BILATERAL W LADARIUS, US BREAST RIGHT LIMITED ORDERING HEALTHCARE PROVIDER: VELMA IRIZARRY HISTORY: 60-year-old female presents for evaluation of a palpable lump in the right breast for 2 months and routine screening mammography of the left breast. COMPARISON: 08/11/2016, 06/26/2015, 01/22/2014, 03/17/2012. TECHNIQUE: CC and MLO views of the bilateral breasts and an ML view of the right breast were obtained with digital technique using breast tomosynthesis with C view. Computer aided detection was utilized. Multiple ultrasound images of the right breast were obtained. FINDINGS: MAMMOGRAPHIC FINDINGS DENSITY: There are scattered fibroglandular elements in the bilateral breasts. BREASTS: A radiopaque marker is placed over the palpable site of concern in the right breast at the 11 o'clock position, middle depth. There is no suspicious mammographic finding underlying the radiopaque marker. There are no suspicious findings in either breast. There has been no suspicious interval change. ULTRASOUND FINDINGS Targeted ultrasound of the palpable site of concern in the right breast at the 11 o'clock position, 7 cm from the nipple demonstrates only normal breast tissue. There is no sonographic abnormality at the palpable site of concern. Velma Irizarry MD IMG MAMMO PROCEDURES Fi nal Result * Hepatitis C Antibody Reflex Hepatitis C RNA Quantitative PCR (11/20/2016 10:03 AM CDT) Hep C Ab Negative Negative [facility] Blood specimen (specimen) 11/20/2016 10:03 AM CDT 11/20/2016 5:52 PM CDT Roz Washington MD LAB MICROBIOLOGY - GENERAL ORDERABLES Final Result [facility] [id number] Department [place] [address] * (ABNORMAL) Hemoglobin A1c (11/20/2016 10:03 AM CDT) Hgb A1C 8.2(H) 4.0 - 6.0 % [facility] HAND Comment: Interpretive Data Hemoglobin A1c ADA Interpretive Guidelines <7% Glycemia controlled >8% Hyperglycemia, additional action recommended Glenn Immunochemical Method Current interpretive data was last revised on 2015 Testing performed by: [facility], [place] [address] Estimated Average Glucose 189 mg/dL [facility] HAND Comment:Testing performed by : [facility], [place] [address] Blood specimen (specimen) 11/20/2016 10:03 AM CDT 11/21/2016 12:25 PM CDT Roz Washington MD LAB BLOOD ORDERABLES Final Result [facility] [address] Department of Laboratories [place] [id number] * DIABETES FOOT EXAM (07/20/2016) Diabetic Foot Exam Unknown Historical Provider HEALTH MAINTENANCE Final Result * DIABETES EYE EXAM (04/16/2016) Diabetic Eye Exam Unknown Historical Provider HEALTH MAINTENANCE Final Result * DEXA SCAN (10/02/2015) DEXA Scan Abnormal Comment:Osteopenia Historical Provider HEALTH MAINTENANCE Final Result * COLONOSCOPY (11/26/2014) Colonoscopy Abnormal Comment:Colon polyps, left s ided diverticuli, internal hemorrhoids Historical Provider HEALTH MAINTENANCE Final Result from Last 3 Months or Most Recently Relevant to Health Maintenance Insurance [facility] [id number] [facility] OPEN ACCESS [employer] MEDICARE Advance Directives For more information, please contact: [phone] * Full Code (Latest Code Status on File) Date Activated Date Inactivated Comments 12/04/2020 9:03 PM 12/06/2020 6:46 PM Care Teams Veterinary Laboratory Diagnostician Relationship Specialty Start Date End Date Phani Jimenez MD PCP - General Family Practice 01/01/21 Phil Rodriguez MD Consulting Physician Cardiovascular Disease 12/06/20
--- OUTSIDE RECORDS SUMMARY | 2024-07-24 10:58 | XMS_ITS | Clinical Summary ---
Author Organization [facility] Address [address] [address] Phone Care Team Providers Care Inhalation Therapist Name Role Phone Roz Washington MD Primary Care Provider [phone] Allergies No known active allergies Medications amLODIPine (NORVASC) 5 mg Oral tabletIndication s:Diffuse cystic mastopathy Take 5 mg by mouth daily. Active lisinopril-hydro chlorothiazide (ZESTORETIC) 20-12.5 mg Oral tabletIndication s:Diffuse cystic mastopathy Take 1 Tab by mouth daily. Active metFORMIN (GLUCOPHAGE) 1,000 mg Oral tabletIndication s:Diffuse cystic mastopathy Take 1,000 mg by mouth 2 times daily with meals. Active glipiZIDE (GLUCOTROL) 5 mg Oral tabletIndication s:Diffuse cystic mastopathy Take 5 mg by mouth daily before breakfast. Active omeprazole (PRILOSEC) 40 mg Oral CpDRIndications: Diffuse cystic mastopathy Take 40 mg by mouth daily. Active aspirin (KENISHA) 81 mg Oral TabIndications:D iffuse cystic mastopathy Take by mouth. Active Active Problems Problem Noted Date Diagnosed Date HTN (hypertension) GERD (gastroesophageal reflux disease) Diabetes mellitus Arthritis History of depression Family History Medical History Relation Name Comments Diabetes Father Heart Disease Father Hypertension Father Cancer Maternal Aunt 1 lymphoma Uterine Cancer Maternal Aunt 1 Cancer Maternal Aunt 2 throat Cancer Maternal Grandmother brain Cancer Mother endometrial desire t to brain and lung Diabetes Paternal Grandmother Heart Disease Paternal Grandmother Hypertension Paternal Grandmother Stroke Paternal Grandmother Breast Cancer Neg Hx Relation Name Status Comments Father Maternal Aunt 1 Maternal Aunt 2 Maternal Grandmother Mother Paternal Grandmother Social History Tobacco Use Types Packs/Day Years Used Date Smoking Tobacco: Every Day Smokeless Tobacco: Never Alcohol Use Standard Drinks/Week Comments Yes 0 (1 standard drink = 0.6 oz pur e alcohol) rare Comments No Sex and Gender Information Value Date Recorded Sex Assigned at Not on file Legal Sex 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 Gender Identity Not on file Sexual Orientation Not on file Occupation Industry Job Start Date Job End Date Not on file Not on file Not on file Not on file Last Filed Vital Signs Vital Sign Reading Time Taken Comments Blood Pressure 95/49 03/18/2011 9:06 AM HAND CUTTER APPRENTICE Pulse 100 03/18/2011 9:06 AM HAND CUTTER APPRENTICE Temperature - - Respiratory Rate - - Oxygen Saturation - - Inhaled Oxygen Concentration - - Weight 111.1 kg (245 lb) 03/18/2011 9:06 AM HAND CUTTER APPRENTICE Height 170.2 cm (5' 7 ) 03/18/2011 9:06 AM HAND CUTTER APPRENTICE Body Mass Index 38.37 03/18/2011 9:06 AM HAND CUTTER APPRENTICE Plan of Treatment Health Maintenance Due Date Last Done Comments DIABETES ANNUAL FOOT EXAM 01/06/1976 DIABETES ANNUAL RETINAL EXAM 01/06/1976 DIABETES HBA1C Q 6 MONTHS 01/06/1976 DIABETES MICROALBUMIN ANNUAL SCREEN 01/06/1976 LDL CHOLESTEROL ANNUAL 01/06/1976 DTAP/TDAP/TD VACCINES (1 - Tdap) 1977 PNEUMOCOCCAL VACCINE 50+ YEA RS (1 of 2 - PCV) 1977 COLORECTAL SCREENING 2003 Colorectal Cancer Screening 2003 FIT-DNA Q 3 years 2003 FIT/FOBT Q 1 year 2003 Flex Sig/CT Colonography Q 5 years 2003 ZOSTER VACCINE (1 of 2) 01/06/2008 BREAST CANCER SCREENING 03/06/2012 03/06/20 11, 03/11/2010, 09/01/2008 OSTEOPOROSIS SCREENING 2023 INFLUENZA VACCINE (#1) 2023 RSV VACCINE (60+ or ) (1 - 1-dose 75+ series) 2033 Procedures Procedure Name Priority Date/Time Associated Diagnosis Comments MAMMO DIAGNOSTIC BILATERAL W OR WO CAD Routine 03/06/2011 from Last 3 Months or Most Recently Relevant to Health Maintenance Results * MAMMO DIGITAL DIAG BILAT (03/06/2011) Anatomical Region Laterality Modality Breast Bilateral Other Roz Washington MD MAMMO ORDERABLES Final Res ult from Last 3 Months or Most Recently Relevant to Health Maintenance Insurance [employer] [facility] OPEN ACCESS [facility] Address: [facility] [address] [place] [address] Care Teams Inhalation Therapist Relationship Specialty Start Date End Date Roz Washington MD PCP - General Internal Medicine 03/18/11
--- OUTSIDE RECORDS SUMMARY | 2024-07-24 10:58 | XMS_ITS | Referral Summary ---
Author Organization [facility] Address [address] [place] [address] Care Team Providers Care Golf Shoe Spike Assembler Name Role Phone Phil Rodriguez MD Unavailable [phone] Phani Jimenez MD Primary Care Provider [phone] Allergies Active Allergy Reactions Criticality Noted Date [...] it, Preservative Free, Intradermal 01/03/2015 Tdap 06/19/2010 Social History Tobacco Use Types Packs/Day Years [...] on file Legal Sex Female 1:37 AM [employer] Gender Identity Female 12/27/2020 8:58 AM CDT Sexual Orientation Straight 12/27/2020 8: 58 AM CDT Last Filed Vital Signs Vital Sign Reading [...] 08/30/2023 7:19 AM CDT Plan of Treatment Not on file Medical Devices Implanted Type Area Education Site Manager Device Identifier Shelf Expiration Date Model / Serial / Lot [employer] [id number] System Coronary Stent Xience Karol Everolimus L18 Mm Od3.25 Mm Rapid Exchange - [id number] Implanted:Qty: 1 on 12/05/2020 by Phil Rodriguez MD at [facility] Other - see comments [employer] 12/30/2021 [id number] / / [id number] [employer]ig Ed[employer] [id number] Angio-Seal Evolution 6fr .035in Guidewire Bypass Tube Suture - [id number] Implanted:Qty: 1 on 12/05/2020 by Phil Rodriguez MD at [facility] Other - see comments [employer] Edie 06/26/2021 [id number] / / [id number] Procedures Procedure Name Priority Date/Time Associated Diagnosis Comments LIPID PANEL Routine 01/27/2021 9:37 AM CDT EGFR Routine 12/06/2020 4:01 AM CDT DIAGNOSTIC MAMMOGRAM BILATERAL W LADARIUS Schedule Routine, Read Routine (OP Routine) 02/01/2020 10:58 AM [employer] Unspecified lump in the right breast, upper outer quadrant HEPATITIS C AB REFLEX RNA QUANT PCR Routine 11/20/2016 10:03 AM CDT HEMOGLOBIN A1C Routine 11/20/2016 10:03 AM CDT Type 2 diabetes mellitus without complication, 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 LDL-C is now calculated using the Jarett-Sandra calculation, which is a validated novel method providing better accuracy than the Friedewald equation in the estimation of LDL-C. Jarett DOUGLAS et al. IRIS. 2013;310(19): 4085-6426 (http://education.V[employer]lex.[employer]/faq/BWH066) Chol/HDL ratio 1.9 <5.0 (calc) [facility] Non-HDL, (LDL+VLDL) 35 <130 mg/dL (calc) [facility] Comment: For patients with diabetes plus 1 major ASCVD risk factor, treating to a non-HDL-C goal of <100 mg/dL (LDL-C of <70 mg/dL) is considered a therapeutic option. 01/27/2021 9:37 AM CDT 01/27/2021 9:38 AM CDT us Serenity Roblero NP LAB BLOOD ORDERABLES Final Result [facility] [address] [id number] * eGFR (12/06/2020 4:01 AM CDT) eGFR 102 mL/min/1.7 3 m2 [facility] Comment: Interpretive Data Reference Interval Normal >/= [...] MD LAB BLOOD ORDERABLES Final Res ult [facility] Department [place] [address] * Diagnostic Mammogram Bilateral W Ladarius (02/01/2020 10:58 AM [employer]) Anatomical Region Laterality Modality Breast Bilateral Mammography 02/01/2020 11:2 2 AM [employer] Impressions 02/01/2020 11:52 AM [employer] 1. No mammographic or sonographic abnormality at [...] Igor Cedeño M.D. Narrative 02/01/2020 11:52 AM [employer] EXAMINATION: DIAGNOSTIC MAMMOGRAM BILATERAL W LADARIUS, US [...] abnormality at the palpable site of concern. us Velma Irizarry MD IMG MAMMO PROCEDURES Fi nal Result * Hepatitis C Antibody Reflex Hepatitis C RNA Quantitative PCR (11/20/2016 10:03 AM CDT) Hep C Ab Negative Negative [facility] Blood specimen (specimen) 11/20/2016 10:03 AM CDT 11/20/2016 5:52 PM CDT Roz Washington MD LAB MICROBIOLOGY - GENERAL ORDERABLES Final Result [facility] [id number] Department [place] [address] * (ABNORMAL) Hemoglobin A1c (11/20/2016 10:03 AM CDT) [facility] Hgb A1C 8.2(H) 4.0 - 6.0 % [facility] Comment: Interpretive Data Hemoglobin A1c ADA Interpretive Guidelines <7% Glycemia controlled >8% Hyperglycemia, additional action recommended Glenn Immunochemical Method Current interpretive data was last revised on 2015 Testing performed by: [facility], [place] [address] Estimated Average Glucose 189 mg/dL [facility] Comment:Testing performed by : [facility], [place] [address] Blood specimen (specimen) 11/20/2016 10:03 AM CDT 11/21/2016 12:25 PM CDT Result [facility] Roz Washington MD LAB BLOOD ORDERABLES Final Result Performing Organization Address City/State/[facility] Co de Phone Number [facility] [address] Department [place] [address] * DIABETES FOOT EXAM (07/20/2016) [facility] Diabetic Foot Exam Unknown Result [facility] Provider HEALTH MAINTENANCE Final Result * DIABETES EYE EXAM (04/16/2016) [facility] Diabetic Eye Exam Unknown Result [facility] Provider HEALTH MAINTENANCE Final Result * DEXA SCAN (10/02/2015) [facility] DEXA Scan Abnormal Comment:Osteopenia Result [facility] Historical Provider HEALTH MAINTENANCE Final Result * COLONOSCOPY (11/26/2014) [facility] Colonoscopy Abnormal Comment:Colon polyps, left s ided diverticuli, internal hemorrhoids Historical [facility] HEALTH MAINTENANCE Final Result from Last 3 Months or Most Recently Relevant to Health Maintenance Insurance [facility] [id number] [facility] Member Subscriber Plan / Payer (Ef fective 2020-Present) Name:Bev Erazo Member ID:[id number] Relation to Subscriber:Self Name:Bev Erazo Subscriber ID:[id number] Payer ID:[id number] Type:[employer] HMO/PPO Address: [facility] [id number] [id number] [employer] OPEN ACCESS [facility] [id number] AET MEDICARE Advance Directives For more information, please contact: [phone] * Full Code (Latest Code Status on File) Date Activated Date Inactivated Comments 12/04/2020 9:03 PM 12/06/2020 6:46 PM Care Teams Golf Shoe Spike Assembler Relationship Specialty Start Date End Date Phani Jimenez MD PCP - General Family Practice 01/01/21 Phil Rodriguez MD Consulting Physician Cardiovascular Disease 12/06/20
--- OUTSIDE RECORDS SUMMARY | 2024-07-24 10:58 | XMS_ITS | Continuity of Care Document ---
Author Organization [employer] [facility] Address [address] [facility] [address] [place] [address] Phone Care Team Providers Care Breed To Wean Production Technician Name Role Phone Nura OD, Page Unavailable Unavailable Allergies, Adverse Reactions, Alerts Substance Reaction Status Criticality TAPE, PERMEABLE ADHESIVE Active No Information Medications Medication Instructions Dosage Effective Dates (start - stop) Status Comments atorvastatin 10 mg tablet take 1 tablet by oral route every day 10 MG - Active Mounjaro 12.5 mg/0.5 mL subcutaneous pen injector inject (12.5MG) by subcutaneous route every week 12.5 MG - Active Jardiance 10 mg tablet take 1 tablet by oral route every day in the morning 10 MG - Active metoprolol succinate ER 25 mg tablet,extended release 24 hr take 1 tablet by oral route every day 25 MG - Active metformin 1,000 mg tablet take 1 tablet by oral route 2 times every day with morning and evening meals 1000 MG - No Longer Active lisinopril 2.5 mg tablet take 1 tablet by oral route every day 2.5 MG - No Longer Active Brilinta 60 mg tablet take 1 tablet by oral route 2 times every day 60 MG - No Longer Active Procedures Procedure Date No Charge Optomap Fundus Photos 025 Office/outpatient Visit, Est Refraction Fundus Photography W/ Report Eye Exam & Treatment No Charge Optomap Fundus Photos 021 No Charge Refraction Post-op Follow-up Visit After Cataract Laser Surgery No Charge Refraction Fundus Photography W/ Report Office/outpatient Visit, New No Charge Refraction Eye Exam & Treatment Eye Exam & Treatment Office/outpatient Visit, Est Eye Exam & Treatment Office/outpatient Visit, Est Post-op Follow-up Visit Post-op Follow-up Visit Remove Cataract, Insert Lens Limbal Relaxing Incision Astigmatism Correcting Toric IOL 2009 [employer]Professional Post-op Follow-up Visit Post-op Follow-up Visit Post-op Follow-up Visit Post-op Follow-up Visit Remove Cataract, Insert Lens Astigmatism Correcting Toric IOL 2009 No Charge Cataract Check IOLMaster Corneal Topography Eye Exam & Treatment Eye Exam & Treatment Eye Exam & Treatment Eye Exam & Treatment Office/outpatient Visit, Est Eye Exam, New Patient Fundus Photography W/ Report Advance Directives Directive Yes / No Effective Date File Name Other Directive No N/A N/A WARNING:The information contained in this section is historical and is provided for information only and does not constitute a legal document or any assurance that the information is still accurate. Please verify the information with the huerta of the legal document before using it for clinical purposes. Encounters Encounter Description Practice Location Reason(s) For Visit Diagnoses Date Provider Providers Copied on Encounter Office/outpa tient Visit, Est [facility], [address], [place], [place], [address], [place] tel:[phone] SEC Silverio KAMILA Professional Complete Exam (chief complaint) Presence of intraocular lensType 2 diabetes mellitus without complication sOther chorioretina l scars, left eye 5 Nura OD Page. [facility] [address], [address], [place], [place], [address], . tel:[phone] Referring Provider: Chandu Greenberg, [facility] [address], [place], [address]. tel:[phone] [facility], [address], [place], [place], [address], [place] tel:[phone] SEC Silverio TREVIÑO Professional Complete Exam (chief complaint) Type 2 diabetes mellitus without complication sPuckering of macula, right eyePresence of intraocular lensOther chorioretina l scars, left eyeDrusen (degenerativ e) of macula, left eye 3 Nabil Galarza. [address], [address], [place], [place], [address], [place]. tel:[phone] Referring Provider: Chandu Greenberg, [address], [place], [address]. tel:[phone] [facility], [address], [place], [place], [address], [place] tel:[phone] SEC Teresa Jean Yag PC po (chief complaint) Post op visitRegular astigmatism of both eyes 1 Nura OD Page. [facility] [address] [address], [address], [place], [place], [address], [place]. tel:[phone] Referring Provider: Page Nura OD K, [facility] [address], [place], [address]. tel:[phone] [facility], [address], [place], [place], [address], tel:[phone] [facility] No Information 1 Errol Schofield. [address], [address], [place], [place], [address], . tel:[phone] Referring Provider: Jak Greenberg, [address] [facility], [place], [address]. tel:[phone] Office/outpa tient Visit, [facility], [address], [place], [place], [address], [place] tel:[phone] [facility] Complete Exam (chief complaint) Other secondary cataract, bilateralPre sence of intraocular lensType 2 diabetes mellitus without complication sPuckering of macula, right eyeDrusen (degenerativ e) of macula, left eyeOther chorioretina l scars, left eye 1 Errol Schofield. [address] [place] [address] [employer] [facility], [address], [place], [place], [address], . tel:[phone] Referring Provider: Chandu Greenberg, [address] [place] [address] [employer] [facility] [address], [place], [address]. tel:[phone] [facility], [address] [place] [address] [address], [place], [place], [address], [place] tel:[phone] SEC Silverio [place] Professional Diabetic eye exam (chief complaint) Pseudophakia of both eyesType 2 diabetes mellitus without complication sERM OD (epiretinal membrane, right eye) 0 6 Gabby Benedict. [address] [facility], [facility] [address], [place], [place], [address], [place]. [phone] Referring Provider: Jak Greenberg, [address] [facility] [address], [place], [address]. tel:[phone] [facility], [address] [place] [address] [address], [place], [place], [address], [place] tel:[phone] SEC Silverio [place] Professional LENS REPLACEMENT NECHORSESHOE TEAR OF RETINADiabet es Mellitus Type 2, Uncomplicate d 4 Gabby Benedict. [address] [facility], [address], [place], [place], [address], . tel:[phone] Referring Provider: Jak Greenberg, [address] [facility] [address], [place], [address]. tel:[phone] Office/outpa tient Visit, Est [facility], [address], [place], [place], [address], [place] tel:[phone] SEC Silverio [place] Professional LENS REPLACEMENT NECDiabetes Mellitus Type 2, Uncomplicate dHORSESHOE TEAR OF RETINA 3 Gabby Benedict. [address] [facility], [address], [place], [place], [address], . tel:[phone] Referring Provider: Jak Greenberg, [address] [facility] [address], [place], [address]. tel:[phone] [facility], [address], [place], [place], [address], [place] tel:[phone] SEC [place] Professional No Information 2 Gabby Benedict. [address] [facility], [address] [place], [address], . tel:[phone] Referring Provider: Jak Greenberg, [address] [facility] [address], [place], [address]. tel:[phone] Office/outpa tient Visit, Est [facility], [address], [place], [place], [address], [place] tel:[phone] SEC [place] Professional No Information 1 Gabby Benedict. [address] [facility], [address] [place], [address], [place]. tel:[phone] [facility], [address], [place], [place], [address], [place] tel: SEC Silverio [place] Professional No Information Nov-1 6-201 0 Gabby Benedict. [address] [facility], [address], [place], [place], [address], [place]. tel: [facility], [address], [place], [place], [address], [place] tel: SEC Silverio [place] Professional No Information Dec-2 9-201 0 Gabby Benedict. [address] [facility], [facility] [address], [place], [place], [address], [place]. tel: [facility], [address], [place], [place], [address], [place] tel: [facility] No Information Dec-2 8-201 0 [place] Chandu. [address], [address], [place], [place], [address], [place]. tel:[phone] Referring Provider: Jak Greenberg, [address] [facility] [address], [place], [address]. tel:[phone] [facility], [address], [place], [place], [address], [place] tel: SEC [facility] No Information 2 7-201 0 Errol Chandu. [address], [address], [place], [place], [address], [place]. tel:[phone] Referring Provider: Jak Greenberg, [address] [facility] [address], [place], [address]. [phone] [facility], [address], [place], [place], [address], [place] tel:[phone] SEC Tersea N Lindbergh No Information Sep-2 8-201 0 Errol Chandu. [address], [address], [place], [place], [address], [place]. tel:[phone], [address], [place], [place], [address], [place] tel:[phone] SEC Ismay KAMILA Cat No Information Sep-2 2-201 0 Wanlatonya Benedict. [address] [facility], [address], [place], [place], [address], [place]. tel:[phone] Referring Provider: Jak Greenberg, [address] [facility] [address], [place], [address]. tel:[phone] [facility], [address], [place], [place], [address], [place] tel: SEC Teresa N Lindberg No Information Sep-1 7-201 0 Errol Chandu. [address], [address], [place], [place], [address], [place]. tel: [facility], [address], [place], [place], [address], [place] tel:[phone] SEC [place] N Lindbergh No Information Sep-0 8-201 0 Anya Bolton. [address] [facility], [address], [place], [place], [address], [place]. tel:[phone] Referring Provider: Jak Greenberg, [address] [facility] [address], [place], [address]. tel:[phone] [employer] [facility], [address], [place], [place], [address], [place] tel:[phone] [facility] No Information Sep-0 7-201 0 [place] Chandu. [address], [address], [place], [place], [address], [place]. tel:[phone] Referring Provider: Jak Greenberg, [facility] [address] [facility] [address], [place], [address]. [phone] [facility], [address] [place] [address] [address], [place], [place], [address], [place] tel:[phone] SEC [facility] Professional No Information 1- 0 Errol Schofield. [address], [address], [place], [place], [address], [place]. tel:[phone] Referring Provider: Jak Greenberg, [address] [facility] [address], [place], [address]. [phone] [facility], [address], [place], [place], [address], [place] tel:[phone] [facility] No Information 0 Bryan Lindai. [address], [address], [place], [address], [place]. tel:[phone] Referring Provider: Noemi Adams, [address], [place], [place], [facility]. tel:[phone] [facility], [address] [place] [address] [address], [place], [place], [address], [place] tel:[phone] SEC Silverio [place] Professional No Information 0 Bryan Shafferlpi. [address] [employer], [address], [place], [address], [place]. tel:[phone] [facility], [address], [place], [place], [address], [place] tel:[phone] SEC Silverio [place] Professional No Information 6 0 Bryan Shafferlpi. [address] [employer] [address], [address], [place], [address], [place]. tel:[phone] Referring Provider: Jak Greenberg, [address] [facility] [address], [place], [address]. tel:[phone] [facility], [address], [place], [place], [address], [place] tel:[phone] SEC [facility] Professional No Information 201 0 Gabby Benedict. [address] [facility], [address], [place], [place], [address], [place]. tel:[phone] [facility], [address], [place], [place], [address], [place] tel:[phone] SEC [facility] Professional No Information 9 Gabby Benedict. [address] [facility], [address], [place], [place], [address], [place]. tel:[phone] Office/outpa tient Visit, Est [facility], [address], [place], [place], [address], [place] tel:[phone] SEC [facility] Professional No Information 8 Radha Mckeon. [address] [facility], [address], [place], [place], [facility], . tel:[phone] [facility], [address], [place], [place], [address], [place] tel:[phone] SEC [facility] Professional No Information 7 Radha Mckeon. [address] [facility], [address], [facility], . tel:[phone] Referring Provider: Linda Birch, [address] [facility] [address], [place], [facility]. tel:[phone] Family History Family Member Type Diagnosis Age At Onset Problem Family history o f degenerative disorder of macula Father Problem (finding) hypertension Father Problem (finding) diabetes adelitai tus in first degree relative Payers Payer name Insurance type Covered alliance party ID Jayy hill(sVincent Sumner Mdcr Gold Adv Prime CI [id number] Social History Type Description Quantity Date Captured Comments Alcohol Use Details 1 drink rarely Caffeine Use Details 2 cups per day Tobacco Use Status Ex-cigarette smoker 025 Smoking Status Former smoker Smoking Tobacco Use Details Cigarette: Age Started: 18, Age Stopped: 48, Years Used 30 Cigarette: 1 Packs per day, Pack Year: 30 Sex Female Chief Complaint And Reason For Visit From encounter dated '06/30/2024 10:00'. Complete Exam (chief complaint). Description: The 64 year old patient presents for evaluation of Complete Exam in the right eye and left eye. Pt states no changes in OU since last visit. Pts PCP follows them for diabetes type II and last A1C was 5.1 and last blood sugar reading was 98. Reason For Referral Reason For Referral No Information Plan Of Treatment Date Type Action Status Goal Tobacco cessation counseling completed Referral Ordered: Ophthalmology (related to ERM OD (epiretinal membrane, right eye)) ordered Referral Ordered: Referrals: Ophthalmology. Evaluate and treat ordered Patient Education Type 2 Diabetes: Care I nstructions completed Patient Education Learning About YAG Lase r Capsulotomy completed History Of Present Illness Encounter Date Complaint History Of Prese nt Illness Complete Exam The 64 year old patient presents for evaluation of Complete Exam in the right eye and left eye. Pt states no changes in OU since last visit. Pts PCP follows them for diabetes type II and last A1C was 5.1 and last blood sugar reading was 98. Complete Exam The 62 year old patient presents for evaluation of Complete Exam in the right eye and left eye. Patient states VA is good. Patient states eye sometimes water. No gtts at this time. Patient is a Type 2 diab, BS checked 92, a1c 5.6, and PCP. Yag PC po The 60 year old female presents for evaluation of Yag PC po in the left eye. Pt states OS is still hazy.Pt may want to consider having Yag done on OD. Complete Exam The 60 year old female presents for evaluation of Complete Exam in the right eye and left eye. Hx PCIOL /Toric OU(2009)(OS RK), Hx ERM vs Mac, edema OD. Patient is DMT2, averages around 80 fasting, 140 after meal. patient doesn't have PCP or specialty doctor as of the moment will start with new one an update us. patient noted moderate changes in visual acuity distance and near OU, states she is trying not to drive when is dark due to glare from oncoming lights and difficulties with traffic and street signs especially in areas she doesn't know. Patient is having moderate difficulties reading small print and switching three pairs of reading glasses in order to adjust. patient [facility], last exam 2018, states she was treated with laser for retinal tear OD. No flashes. No changes in longstanding floaters. Gtts: None Diabetic eye exam The 55 year ol d female presents for a complete Type II diabetic exam. Patient is now off all diabetes meds. Patient c/o floaters ou. Patient wears OTC. Functional Status Date Functional Assessmen t No Information Instructions Date Instruction Additional Infor sharon Impression/Plan Impression/Plan Impression/Plan Impression/Plan Impression/Plan - IO L's in good position. Diabetes type II: no background retinopathy, no signs of neovascularization noted. Discussed ocular and systemic benefits of blood sugar control. DM letter sent to Dr Washington. ERM OD vs macular edema OD discussed, refer patient to a Retina Specialist to evaluation. 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 Ezra santamaria Related to HORSESHOE TEAR OF RETINA Assessments Type Assessment Date assessment Presence of intraocular lens Jun assessment Type 2 diabetes mellitus without complications assessment Other chorioretinal scars, left eye Patient Care Teams Name Effective Dates (start - stop) Status Members No Information
--- OUTSIDE RECORDS SUMMARY | 2024-07-24 10:58 | XMS_ITS | Clinical Summary ---
Author Organization [facility] Address [address] [place] [address] Care Team Providers Care Hydraulic Jack Mechanic Name Role Phone Unavailable Primary Care Provider Unavailabl e Source Comments [facility],non-owned Affiliates and Associated Physician Practices is amultiple site organization consisting of ambulatory clinics and hospital sitesin [place], [place], [place] and [place]. This disclosure is being madepursuant to the Care Everywhere program and may not contain all information available regarding this patient. Last updated 17.[facility] [employer] Social History Tobacco Use Types Packs/Day Years Used Date Smoking Tobacco: Never Assessed Comments Unknown Sex and Gender Information Value Date Recorded Sex Assigned at Female 02/12/2021 10:28 AM NUTRITION INSTRUCTOR Legal Sex Female 10:28 AM NUTRITION INSTRUCTOR Gender Identity Female 02/12/2021 10:28 AM NUTRITION INSTRUCTOR Sexual Orientation Straight 02/12/2021 10 :28 AM NUTRITION INSTRUCTOR Plan of Treatment Health Maintenance Due Date Last Done Comments BONE DENSITY TESTING 1960 COLOGUARD (AGES 45-75) - COL ON CA SCREENING 1958 COLON MONITORING 1958 COLONOSCOPY - COLON CA SCREENING 1958 CT COLONOGRAPHY - COLON CA SCREENING 1960 Colorectal Cancer Screening 1958 FIT - COLON CA SCREENING 1958 FLEX SIG - COLON CA SCREENING 1958 LIPID TESTING 1958 MAMMOGRAM 1958 HEPATITIS C SCREENING 01/01/1976 DTAP/TDAP/TD VACCINES (1 - Tdap) 1977 PNEUMOCOCCAL VACCINE 50+ (1 of 1 - PCV) 01/06/2008 ZOSTER VACCINE (1 of 2) 01/06/2008 COVID-19 VACCINE ( - 2023-2 5 season) 2023 DEPRESSION SCREENING 03/29/2024 INFLUENZA VACCINE (Season Ended) 2024 Respiratory Syncytial Virus (RSV) Vaccine Pt: or over 60 yrs (1 - 1-dose 75+ series) 2033 HEPATITIS B VACCINE Aged Out No longe r eligible based on patient's age to complete this topic HIB VACCINE Aged Out No longer eligi ble based on patient's age to complete this topic HPV VACCINE Aged Out No longer eligi ble based on patient's age to complete this topic MENINGOCOCCAL (Group B) VACC INE SHARED DECISION-MAKING Aged Out No longer eligibl e based on patient's age to complete this topic MENINGOCOCCAL GROUPS A/C/Y/W VACCINE Aged Out No longer eligible b ased on patient's age to complete this topic [facility] Address: [facility] [id number] [place] [address]
[2024-07-24 21:31] LABS: Microalbumin Urine Random 18.6 mg/L (0-16.7)
[2024-07-24 21:33] LABS: Creatinine Urine 146.3 mg/dL; MALB Creatinine Ratio 12.7 mg/g (0-30)
[2024-07-24 22:37] LABS: Alanine Aminotransferase 23 U/L (6-35); Albumin Level 4.2 g/dL (3.5-5.1); Alkaline Phosphatase 67 U/L (38-126); Anion Gap 7 mmol/L (4-12); Aspartate Amino Transferase 63 U/L (14-36); Bilirubin,Total 0.8 mg/dL (0.2-1.3); Blood Urea Nitrogen 10 mg/dL (7-17); Calcium 9.1 mg/dL (8.4-10.2); Carbon Dioxide 27 mmol/L (22-30); Chloride 104 mmol/L (98-107); Cholesterol 147 mg/dL (0-200); Estimated Glomerular Filt Rate > 60; Glucose 90 mg/dL (65-110); HDL Direct 70 mg/dL; Potassium 4.4 mmol/L (3.4-5.0); Sodium 138 mmol/L (137-145); Triglycerides 134 mg/dL (<150)
[2024-07-24 22:48] LABS: LDL Cholesterol Direct 41 mg/dL
[2024-07-25 01:08] LABS: Hemoglobin A1C 5.2 % (<5.7)
[2024-07-26 03:29] LABS: Mumps Virus IgG Antibody <9.00 AU/mL
== END 2024-07-24 09:52 | disposition home or self-care (01) ==
LOC: ANHBWCLAB 09:52
PROVIDERS: PCP Nurse Practitioner Adult Health; Visit Provider Nurse Practitioner Adult Health
DX: E11.9 Type 2 diabetes mellitus without complications (principal); Z92.29 Personal history of other drug therapy
CPT/HCPCS: 36415; 80053; 80061; 82043; 82565; 83036; 86735; 86762; 86765

== ENCOUNTER 2025-01-22 10:35 | Outpatient (CLI) | payer MEDICARE, SELFPAY ==
--- OUTSIDE RECORDS SUMMARY | 2025-01-22 12:01 | XMS_ITS | Clinical Summary ---
Author Organization [facility] [place] Address [address] [address] Phone Care Team Providers Care Subway Repair Supervisor Name Role Phone Roz Washington MD Primary Care Provider [phone] Allergies No known active allergies Medications amLODIPine [...] on file Legal Sex Female 6:06 AM ELEVATOR PILOT Gender Identity Not on file Sexual Orientation Not on file Occupation Industry Job Start Date Job End Date Not on file Not on file Not on file Not on file Last Filed Vital Signs Vital Sign Reading Time Taken Comments Blood Pressure 95/49 03/18/2011 9:06 AM ELEVATOR PILOT Pulse 100 03/18/2011 9:06 AM ELEVATOR PILOT Temperature - - Respiratory Rate - - Oxygen Saturation - - Inhaled Oxygen Concentration - - Weight 111.1 kg (245 lb) 03/18/2011 9:06 AM ELEVATOR PILOT Height 170.2 cm (5' 7) 03/18/2011 9:06 AM ELEVATOR PILOT Body Mass Index 38.37 03/18/2011 9:06 AM ELEVATOR PILOT Plan of Treatment Health Maintenance Due Date [...] 09/01/2008 OSTEOPOROSIS SCREENING 2023 INFLUENZA VACCINE (#1) 2024 RSV VACCINE (60+ or ) (1 - [...] Most Recently Relevant to Health Maintenance Insurance [employer] [facility] Address: [facility] [id number] [place] [address] Care Teams Subway Repair Supervisor Relationship Specialty Start Date End Date Roz Washington MD PCP - General Internal Medicine 03/18/11
--- OUTSIDE RECORDS SUMMARY | 2025-01-22 12:01 | XMS_ITS | Clinical Summary ---
Author Organization [facility] Address [address] [place] [address] Care Team Providers Care Mig Welder Name Role Phone Unavailable Primary Care Provider Unavailabl e Source Comments [facility],non-owned Affiliates and Associated Physician Practices is amultiple site organization consisting of ambulatory clinics and hospital sitesin [place], [place] and [place]. This disclosure is being madepursuant to the Care Everywhere program and may not contain all information available regarding this patient. Last updated 17.[facility] v[facility] Social History Tobacco Use Types Packs/Day Years Used Date Smoking Tobacco: Never Assessed Comments Unknown Sex and Gender Information Value Date Recorded Sex Assigned at Female 02/12/2021 10:28 AM GAUGE MACHINE OPERATOR Legal Sex Female 10:28 AM GAUGE MACHINE OPERATOR Gender Identity Female 02/12/2021 10:28 AM GAUGE MACHINE OPERATOR Sexual Orientation Straight 02/12/2021 10 :28 AM GAUGE MACHINE OPERATOR Plan of Treatment Health Maintenance Due Date [...] 01/06/2008 ZOSTER VACCINE (1 of 2) 01/06/2008 DEPRESSION SCREENING 03/29/2024 COVID-19 VACCINE (1 - 4-2 5 season) 2024 INFLUENZA VACCINE (#1) 2024 Respiratory Syncytial Virus (RSV) Vaccine Pt: [...] patient's age to complete this topic Insurance [facility] [facility] [place] Address: [facility] [id number] [place] [address]
--- OUTSIDE RECORDS SUMMARY | 2025-01-22 12:01 | XMS_ITS ---
Author Organization [facility] Address [address] [place] [address] Care Team Providers Care Marble Finisher Name Role Phone Phil Rodriguez MD Unavailable [phone] Phani Jimenez MD Primary Care Provider [phone] Active Problems Problem Noted Date Diagnosed Date [...] OA (osteoarthritis) Cataract 08/25/2012 Overview (07/02/2016): Cataract Current Treatment and Therapy Plans No current plan information found. Past Treatment and Therapy Plans No past plan information found. Lifetime Dose Tracking * Chemical Lifetime Dose Automatic Entry Manual Entr y Fluoro Time 4.7 minutes 0 minutes 4.7 minutes
--- OUTSIDE RECORDS SUMMARY | 2025-01-22 12:01 | XMS_ITS | Clinical Summary ---
Author Organization [facility] Address [address] [place] [address] Care Team Providers Care Survey Compiler Name Role Phone Phil Rodriguez MD Unavailable [phone] Phani Jimenez MD Primary Care Provider [phone] Allergies Active Allergy Reactions Criticality Noted Date [...] EXTRACTION wisdom teeth removal OTHER SURGICAL HISTORY 01-photographic specialist: soledad OTHER SURGICAL HISTORY 01-nurse obgyn: jason OTHER SURGICAL HISTORY 03-oncolgy: jean carlos [...] Medical History Date Comments Hx Other Medical -photographic specialist Hx Other Medical -nurse obgyn Hx Other Medical -oncolgy Type 2 diabetes mellitus Diabete s type 2 Hypertension Hypertension Osteoarthritis Osteoarthritis Hx Other Medical 2012 retinal tear an d cryo therapy Hx Other Medical precancerous vu lvar dx'd by ob; Comments: BACK HOE OPERATOR 10/08/2014 -had done 07-12-14 Hx Other Medical YUNG III; Commen ts: AAW 10/08/2014 -; Outcome: 1 small magrin not clear. Hx Other Medical Elevated White Blood Cell Hx Other Medical basal cell canc er lip; Comments: AAW 06/08/2015 -; Laterality: right Smoking Family History [...] on file Legal Sex Female 1:37 AM STREETS AND BUILDINGS DECORATOR Gender Identity Female 12/27/2020 8:58 AM CDT [...] 7:19 AM CDT Height 167.6 cm (5' 6) 08/30/2023 7:19 AM CDT Body Mass Index [...] Additional history exists Lipid Panel 01/27/2022 01/27/2021, 09/0 10/2020, 11/20/2016, Additional history exists Well Visit 65+ 2023 Influenza Vaccine (#1) 2024 8, 01/03/2015, 12/21/2013 Colon Cancer Screening-CT Colonography Discontinued 11/26/2014 Colon Cancer Screening-DNA Stool Discontinued 11/27/19 15 Colon Cancer Screening-FIT Discontinued 11/26/2014 Colon Cancer Screening-Sigmoidoscopy Discontinued 11/26/2014 Hepatitis C Screening Completed 11/20/2016, 017 Medical Devices Implanted Type Area Steam Box Tender Device Identifier Shelf Expiration Date Model / Serial / Lot [employer] [id number] System Coronary Stent Xience Karol Everolimus L18 Mm Od3.25 Mm Rapid Exchange - [id number] Implanted:Qty: 1 on 12/05/2020 by Phil Rodriguez MD at [facility] Other - see comments [employer] 12/30/2021 [id number] / / [id number] Daig Edie[employer] [id number] Angio-Seal Evolution 6fr .035in Guidewire Bypass Tube Suture - [id number] Implanted:Qty: 1 on 12/05/2020 by Phil Rodriguez MD at [facility] Other - see comments [employer] Edie 06/26/2021 [id number] / / [id number] Procedures Procedure Name Priority Date/Time Associated Diagnosis Comments LIPID PANEL Routine 01/27/2021 9:37 AM CDT EGFR Routine 12/06/2020 4:01 AM CDT DIAGNOSTIC MAMMOGRAM BILATERAL W LADARIUS Schedule Routine, Read Routine (OP Routine) 02/01/2020 10:58 AM STREETS AND BUILDINGS DECORATOR Unspecified lump in the right breast, upper outer quadrant HEPATITIS C AB REFLEX RNA QUANT PCR Routine 11/20/2016 10:03 AM CDT HEMOGLOBIN A1C Routine 11/20/2016 10:03 AM CDT Type 2 diabetes mellitus without complication, 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 LDL-C is now calculated using the Jarett-Flores calculation, which is a validated novel method providing better accuracy than the Friedewald equation in the estimation of LDL-C. Jarett DOUGLAS et al. IRIS. 2013;310(19): 5422-0942 (http://education.Think2/faq/WED711) Chol/HDL ratio 1.9 <5.0 (calc) [facility] Non-HDL, (LDL+VLDL) 35 <130 mg/dL (calc) [facility] Comment: For patients with diabetes plus 1 major ASCVD risk factor, treating to a non-HDL-C goal of <100 mg/dL (LDL-C of <70 mg/dL) is considered a therapeutic option. 01/27/2021 9:37 AM CDT 01/27/2021 9:38 AM CDT us Serenity Roblero NP LAB BLOOD ORDERABLES Final Result [facility] [address] [address] * eGFR (12/06/2020 4:01 AM CDT) eGFR 102 mL/min/1.7 3 m2 [facility] Comment: Interpretive Data Reference Interval Normal [...] MD LAB BLOOD ORDERABLES Final Res ult [facility] [place]) 1 [facility] Department of Laboratories [place], [place] [id number] * Diagnostic Mammogram Bilateral W Ladarius (02/01/2020 10:58 AM STREETS AND BUILDINGS DECORATOR) Anatomical Region Laterality Modality Breast Bilateral Mammography 02/01/2020 11:2 2 AM STREETS AND BUILDINGS DECORATOR Impressions 02/01/2020 11:52 AM STREETS AND BUILDINGS DECORATOR 1. No mammographic or sonographic abnormality at [...] Igor Cedeño M.D. Narrative 02/01/2020 11:52 [address] STREETS AND BUILDINGS DECORATOR EXAMINATION: DIAGNOSTIC MAMMOGRAM BILATERAL W LADARIUS, US [...] MICROBIOLOGY - GENERAL ORDERABLES Final Result [facility] [address] Department [place] [address] * (ABNORMAL) Hemoglobin A1c (11/20/2016 10:03 AM CDT) Hgb A1C 8.2(H) 4.0 - 6.0 % [facility] Comment: Interpretive Data Hemoglobin A1c ADA Interpretive Guidelines <7% Glycemia controlled >8% Hyperglycemia, additional action recommended Glenn Immunochemical Method Current interpretive data was last revised on 2015 Testing performed by: [facility], [place] [address] Estimated Average Glucose 189 mg/dL [facility] Comment:Testing performed by : [facility], [place] [address] Blood specimen (specimen) 11/20/2016 10:03 AM CDT 11/21/2016 12:25 PM CDT Roz Washington MD LAB BLOOD ORDERABLES Final Result [facility] [id number] Department [place] [address] * DIABETES FOOT EXAM (07/20/2016) Diabetic Foot Exam Unknown Historical Provider HEALTH MAINTENANCE Final Result * DIABETES EYE EXAM (04/16/2016) Diabetic Eye Exam Unknown Historical Provider HEALTH MAINTENANCE Final Result * DEXA SCAN (10/02/2015) DEXA Scan Abnormal Comment:Osteopenia Result [facility] Historical Provider HEALTH MAINTENANCE Final Result * COLONOSCOPY (11/26/2014) Colonoscopy Abnormal Comment:Colon polyps, left s ided diverticuli, internal hemorrhoids Result [facility] Historical Provider HEALTH MAINTENANCE Final Result from Last 3 Months or Most Recently Relevant to Health Maintenance Insurance [facility] [id number] [facility] [employer]ALTH[employer] OPEN ACCESS [facility] [id number] [employer] MEDICARE Advance Directives For more information, please contact: [phone] * Full Code (Latest Code Status on File) Date Activated Date Inactivated Comments 12/04/2020 9:03 PM 12/06/2020 6:46 PM Care Teams Survey Compiler Relationship Specialty Start Date End Date Phani Jimenez MD PCP - General Family Practice 01/01/21 Phil Rodriguez MD Consulting Physician Cardiovascular Disease 12/06/20
[2025-01-22 18:41] LABS: Alanine Aminotransferase 19 U/L (6-35); Albumin Level 4.5 g/dL (3.5-5.1); Alkaline Phosphatase 66 U/L (38-126); Anion Gap 6 mmol/L (4-12); Aspartate Amino Transferase 53 U/L (14-36); Bilirubin,Total 0.5 mg/dL (0.2-1.3); Blood Urea Nitrogen 13 mg/dL (7-17); Calcium 9.7 mg/dL (8.4-10.2); Carbon Dioxide 30 mmol/L (22-30); Chloride 104 mmol/L (98-107); Cholesterol 167 mg/dL (0-200); Estimated Glomerular Filt Rate > 60; Glucose 97 mg/dL (65-110); HDL Direct 60 mg/dL; Potassium 4.5 mmol/L (3.4-5.0); Sodium 140 mmol/L (137-145); Total Protein 8.2 g/dL (6.3-8.2); Triglycerides 162 mg/dL (<150)
[2025-01-22 19:03] LABS: Hemoglobin A1C 5.3 % (<5.7)
[2025-01-22 19:27] LABS: MALB Creatinine Ratio 9.5 mg/g (0-30)
== END 2025-01-22 10:36 | disposition home or self-care (01) ==
PROVIDERS: PCP Nurse Practitioner Adult Health; Visit Provider Nurse Practitioner Adult Health
DX: E11.9 Type 2 diabetes mellitus without complications (principal); I25.10 Atherosclerotic heart disease of native coronary artery without angina pectoris
CPT/HCPCS: 36415; 80053; 80061; 82043; 82565; 83036